=== PATIENT | female | born 1950 ===

== ENCOUNTER 2020-05-16 20:00 | Outpatient (CLI) | payer MEDICARE, MEDICAID, SELFPAY | END 2020-05-16 20:01 | disposition home or self-care (01) | LOC: SLEEP 05-17 09:34 | PROVIDERS: Family Provider Family Medicine; Visit Provider Family Medicine | DX: G47.33 Obstructive sleep apnea (adult) (pediatric) (principal) | CPT/HCPCS: 95810 ==

== ENCOUNTER 2020-07-09 20:00 | Outpatient (CLI) | payer MEDICARE, MEDICAID, SELFPAY | END 2020-07-09 20:01 | disposition home or self-care (01) | LOC: SLEEP 07-10 09:18 | PROVIDERS: Family Provider Family Medicine; Visit Provider Family Medicine | DX: G47.33 Obstructive sleep apnea (adult) (pediatric) (principal) | CPT/HCPCS: 95811 ==